=== PATIENT | male | born 1995 | race Two or more races ===

== ENCOUNTER 2024-10-02 12:16 | Emergency (ER) | payer OTHER ==
[~2024-10-02] VITALS: Ht 182.9 cm; Wt 81.6 kg
[2024-10-02] MEDS ORDERED: ZEGERID OTC 201 EACH (13:07)
[2024-10-02] MEDS ORDERED: MAG HYDROX/ALUMINUM HYD/SIMETH 30 ML BLIST.PACK PO ONE ×2 (13:45→14:07)
[2024-10-02 14:25] LABS: BASO % 0.2 % (0.1-1.2); EOS # 2.01 (0.04-0.54); HEMATOCRIT 44.4 % (40.1-51.0); HEMOGLOBIN 15.4 g/dL (13.7-17.5); LYMPH # 1.96 (1.18-3.74); LYMPH % 18.9 % (19.3-53.1); MEAN CORPUSCULAR HEMOGLOBIN 29.9 pg (25.6-32.2); MONO # 0.46 (0.24-0.82); MONO % 4.4 % (4.7-12.5); NEUT # 5.88 (1.56-6.13); NEUT % 56.9 % (34.0-71.1); PLATELET COUNT 214 K/uL (163-369); RED BLOOD COUNT 5.15 M/uL (4.63-6.08); RED CELL DISTRIBUTION WIDTH 12.1 % (11.6-14.4)
[2024-10-02 14:44] LABS: EOS % 19.4 % (0.7-7.0)
[2024-10-02 14:51] LABS: ALBUMIN 3.9 gm/dL (3.4-5.0); BILIRUBIN TOTAL 0.64 mg/dL (0.3-1.2); CALCIUM 8.9 mg/dL (8.5-10.1); CREATININE SERUM 1.08 mg/dL (0.70-1.30); GFR 80.28; GLOBULINA 3.6 G/DL (2.4-3.5); POTASSIUM 3.98 mEq/L (3.5-5.1); TOTAL PROTEIN 7.5 gm/dL (6.4-8.2)
[2024-10-02 15:08] LABS: URINE APPEARANCE Clear; URINE BILIRRUBIN Negative (NEGATIVE); URINE BLOOD Negative; URINE COLOR Yellow; URINE GLUCOSE Negative (NEGATIVE); URINE KETONE Negative (NEGATIVE); URINE LEUKOCYTE Negative; URINE NITRATE Negative; URINE PROTEIN Negative (NEGATIVE)
[2024-10-02 15:11] LABS: URINE WBC 3.3 uL (0.0-23.2)
[2024-10-02 15:17] LABS: URINE BACTERIA 1.2 uL (0.0-1933); URINE EPITHELIAL CELLS 0.9 uL (0.0-38.8); URINE RBC 1.4 uL (0.0-20.8)
== END 2024-10-02 17:18 | disposition home or self-care (01) ==
LOC: EDBD 12:28 → ER 12:28
PROVIDERS: Emergency Medicine
DX: K29.70 Gastritis, unspecified, without bleeding (principal); K21.9 Gastro-esophageal reflux disease without esophagitis; R10.9 Unspecified abdominal pain

== ENCOUNTER 2024-11-03 12:18 | Outpatient (CLI) | payer OTHER ==
[~2024-11-03 12:18] MED LIST: ZEGERID OTC 201 EACH
== END 2024-11-03 12:26 | disposition home or self-care (01) ==
LOC: TOM 12:18
PROVIDERS: ATTEND Internal Medicine Gastroenterology
DX: R10.9 Unspecified abdominal pain (principal)

== ENCOUNTER → 2025-01-03 10:58 | Outpatient (CLI) | payer OTHER | END | disposition home or self-care (01) | LOC: NUCLEAR 10:58 | PROVIDERS: ATTEND Internal Medicine Gastroenterology | DX: R10.13 Epigastric pain (principal) ==